=== PATIENT | male | born 1970 | race American Indian/Alaskan Native ===

== ENCOUNTER 2017-02-01 15:52 | Emergency (ER) | payer SELFPAY ==
--- NOTE | 2017-02-01 17:00 | Emergency Department Report ---
ED Alcohol HPI - General Chief Complaint: Alcohol Stated Complaint: ETOH Time Seen by Provider: 02/01/17 16:44 Source: patient, police, EMS Mode of arrival: Stretcher Limitations: Altered Mental Status, Physical Limitation - History of Present Illness Initial Comments: PATIENT BROUGHT BY EMS AFTER PATIENT FOUND BY POLICE INTOXICATED IN THE STREET MD Complaint: alcohol intoxication Chronic Alcohol Use: Yes Associated Symptoms: denies other symptoms. denies: nausea, vomiting - Related Data Allergies Allergy/AdvReac Type Severity Reaction Status Date / Time Unable to Assess Allergy Unverified 02/01/17 16:55 ED Review of Systems ROS: Stated complaint: ETOH Other details as noted in HPI Comment: All other systems reviewed and negative Constitutional: denies: chills, fever ENT: denies: ear pain, throat pain Respiratory: denies: cough, shortness of breath, SOB with exertion, SOB at rest Cardiovascular: denies: chest pain Gastrointestinal: denies: abdominal pain, nausea, vomiting Neurological: denies: headache ED Past Medical Hx - Past Medical History Previous Medical History?: No - Surgical History Past Surgical History?: No - Social History Smoking Status: Heavy Tobacco Smoker Substance Use Type: Marijuana ED Physical Exam - General Limitations: Altered Mental Status, Physical Limitation General appearance: alert, appears intoxicated ED Course Vital Signs 02/01/17 02/01/17 02/01/17 16:06 16:16 17:09 Temperature 98.2 F 98.2 F 98 F Pulse Rate 82 100 H 88 Respiratory 18 18 18 Rate Blood Pressure 151/93 Blood Pressure 131/93 130/86 [Left] O2 Sat by Pulse 100 100 100 Oximetry 02/01/17 02/01/17 19:01 19:02 Temperature 98 F Pulse Rate 82 Respiratory 18 20 Rate Blood Pressure Blood Pressure 118/72 [Left] O2 Sat by Pulse 100 Oximetry - Reevaluation(s) Reevaluation #1: 02/01/17 19:43 patient is awake , alert and oriented. He doesn't want detox. will discharge when his alcohol level come down. ED Medical Decision Making - Lab Data Result diagrams: 02/01/17 19:15 Critical care attestation.: If time is entered above; I have spent that time in minutes in the direct care of this critically ill patient, excluding procedure time. ED Disposition Clinical Impression: Alcohol abuse Disposition: DC-01 TO HOME OR SELFCARE Is pt being admited?: No Does the pt Need Aspirin: No Condition: Stable Referrals: PRIMARY CARE, [Primary Care Provider] - 3-5 Days
[2017-02-01 19:32] LABS: Basophils % (Auto) 0.3 % (0.0-1.8); Hematocrit 38.6 % (35.5-45.6); Hemoglobin 12.1 gm/dl (11.8-15.2); Mean Corpuscular HGB Conc 32 % (32-34); Mean Corpuscular Volume 73 fl (84-94); Platelet Count 200 K/mm3 (140-440); Red Blood Count 5.28 M/mm3 (3.65-5.03); Red Cell Distribution Width 15.8 % (13.2-15.2); White Blood Count 5.5 K/mm3 (4.5-11.0)
[2017-02-01 19:36] LABS: Mean Corpuscular Hemoglobin 23 pg (28-32)
[2017-02-01 19:50] LABS: Alanine Aminotransferase 19 units/L (7-56); Albumin 4.3 g/dL (3.9-5); Albumin/Globulin Ratio 1.4 %; Alkaline Phosphatase 45 units/L (35-129); Anion Gap 21 mmol/L; Blood Urea Nitrogen 24 mg/dL (9-20); Calcium 8.5 mg/dL (8.4-10.2); Carbon Dioxide 22 mmol/L (22-30); Chloride 110.7 mmol/L (98-107); Glucose 77 mg/dL (75-100); Potassium 4.2 mmol/L (3.6-5.0); Sodium 149 mmol/L (137-145); Total Protein 7.3 g/dL (6.3-8.2)
[2017-02-01 21:51] LABS: Urine Drugs of Abuse Note Disclamer
[2017-02-02 06:42] VITALS: BP 127/89
--- NOTE | 2017-02-02 10:21 | Event Note ---
Date: 02/02/17 The patient is interviewed. The patient is alert and oriented 3. He is not homicidal or suicidal, and he walks with a steady gait. He is clinically sober at this time. He will be discharged at this time. He is instructed to exercise caution with alcohol consumption. Return precautions are reviewed. Vital Signs 02/01/17 02/01/17 02/01/17 16:06 16:16 17:09 Temperature 98.2 F 98.2 F 98 F Pulse Rate 82 100 H 88 Respiratory 18 18 18 Rate Blood Pressure 151/93 Blood Pressure 131/93 130/86 [Left] O2 Sat by Pulse 100 100 100 Oximetry 02/01/17 02/01/17 02/01/17 19:01 19:02 21:51 Temperature 98 F 98 F Pulse Rate 82 88 Respiratory 18 20 18 Rate Blood Pressure Blood Pressure 118/72 118/77 [Left] O2 Sat by Pulse 100 98 Oximetry 02/01/17 02/01/17 02/01/17 21:52 23:22 23:24 Temperature 98 F Pulse Rate 78 Respiratory 18 20 20 Rate Blood Pressure Blood Pressure 126/99 [Left] O2 Sat by Pulse 100 Oximetry 02/02/17 02/02/17 02/02/17 03:00 04:00 05:00 Temperature Pulse Rate 82 68 78 Respiratory 18 18 16 Rate Blood Pressure Blood Pressure 148/118 138/108 132/104 [Left] O2 Sat by Pulse 98 100 98 Oximetry 02/02/17 06:00 Temperature Pulse Rate 83 Respiratory 16 Rate Blood Pressure Blood Pressure 127/89 [Left] O2 Sat by Pulse 98 Oximetry Lab Results 02/01/17 02/01/17 02/01/17 Range/Units 17:01 19:15 19:15 WBC 5.5 (4.5-11.0) K/mm3 RBC 5.28 H (3.65-5.03) M/mm3 Hgb 12.1 (11.8-15.2) gm/dl Hct 38.6 (35.5-45.6) % MCV 73 L (84-94) fl MCH 23 L (28-32) pg MCHC 32 (32-34) % RDW 15.8 H (13.2-15.2) % Plt Count 200 (140-440) K/mm3 Lymph % (Auto) 47.1 H (13.4-35.0) % Grady % (Auto) 5.0 (0.0-7.3) % Eos % (Auto) 9.0 H (0.0-4.3) % Baso % (Auto) 0.3 (0.0-1.8) % Lymph # 2.6 (1.2-5.4) K/mm3 Grady # 0.3 (0.0-0.8) K/mm3 Eos # 0.5 H (0.0-0.4) K/mm3 Baso # 0.0 (0.0-0.1) K/mm3 Seg Neutrophils % 38.6 L (40.0-70.0) % Seg Neutrophils # 2.1 (1.8-7.7) K/mm3 Sodium 149 H (137-145) mmol/L Potassium 4.2 (3.6-5.0) mmol/L Chloride 110.7 H (98-107) mmol/L Carbon Dioxide 22 (22-30) mmol/L Anion Gap 21 mmol/L BUN 24 H (9-20) mg/dL Creatinine 1.5 (0.8-1.5) mg/dL Estimated GFR > 60 ml/min BUN/Creatinine Ratio 16.00 % Glucose 77 (75-100) mg/dL Calcium 8.5 (8.4-10.2) mg/dL Total Bilirubin 0.40 (0.1-1.2) mg/dL AST 22 (5-40) units/L ALT 19 (7-56) units/L Alkaline Phosphatase 45 (35-129) units/L Total Protein 7.3 (6.3-8.2) g/dL Albumin 4.3 (3.9-5) g/dL Albumin/Globulin Ratio 1.4 % Urine Opiates Screen Urine Methadone Screen Ur Barbiturates Screen Ur Phencyclidine Scrn Ur Amphetamines Screen U Benzodiazepines Scrn Urine Cocaine Screen U Marijuana (THC) Screen Drugs of Abuse Note Plasma/Serum Alcohol 0.20 H (0-0.07) gm% 02/01/17 02/01/17 02/02/17 Range/Units 19:15 21:35 03:27 WBC (4.5-11.0) K/mm3 RBC (3.65-5.03) M/mm3 Hgb (11.8-15.2) gm/dl Hct (35.5-45.6) % MCV (84-94) fl MCH (28-32) pg MCHC (32-34) % RDW (13.2-15.2) % Plt Count (140-440) K/mm3 Lymph % (Auto) (13.4-35.0) % Grady % (Auto) (0.0-7.3) % Eos % (Auto) (0.0-4.3) % Baso % (Auto) (0.0-1.8) % Lymph # (1.2-5.4) K/mm3 Grady # (0.0-0.8) K/mm3 Eos # (0.0-0.4) K/mm3 Baso # (0.0-0.1) K/mm3 Seg Neutrophils % (40.0-70.0) % Seg Neutrophils # (1.8-7.7) K/mm3 Sodium (137-145) mmol/L Potassium (3.6-5.0) mmol/L Chloride (98-107) mmol/L Carbon Dioxide (22-30) mmol/L Anion Gap mmol/L BUN (9-20) mg/dL Creatinine (0.8-1.5) mg/dL Estimated GFR ml/min BUN/Creatinine Ratio % Glucose (75-100) mg/dL Calcium (8.4-10.2) mg/dL Total Bilirubin (0.1-1.2) mg/dL AST (5-40) units/L ALT (7-56) units/L Alkaline Phosphatase (35-129) units/L Total Protein (6.3-8.2) g/dL Albumin (3.9-5) g/dL Albumin/Globulin Ratio % Urine Opiates Screen Presumptive negative Urine Methadone Screen Presumptive negative Ur Barbiturates Screen Presumptive negative Ur Phencyclidine Scrn Presumptive negative Ur Amphetamines Screen Presumptive negative U Benzodiazepines Scrn Presumptive negative Urine Cocaine Screen Presumptive negative U Marijuana (THC) Screen Presumptive positive Drugs of Abuse Note Disclamer Plasma/Serum Alcohol 0.29 H 0.17 H (0-0.07) gm% //17 Range/Units 07:13 WBC (4.5-11.0) K/mm3 RBC (3.65-5.03) M/mm3 Hgb (11.8-15.2) gm/dl Hct (35.5-45.6) % MCV (84-94) fl MCH (28-32) pg MCHC (32-34) % RDW (13.2-15.2) % Plt Count (140-440) K/mm3 Lymph % (Auto) (13.4-35.0) % Grady % (Auto) (0.0-7.3) % Eos % (Auto) (0.0-4.3) % Baso % (Auto) (0.0-1.8) % Lymph # (1.2-5.4) K/mm3 Grady # (0.0-0.8) K/mm3 Eos # (0.0-0.4) K/mm3 Baso # (0.0-0.1) K/mm3 Seg Neutrophils % (40.0-70.0) % Seg Neutrophils # (1.8-7.7) K/mm3 Sodium (137-145) mmol/L Potassium (3.6-5.0) mmol/L Chloride (98-107) mmol/L Carbon Dioxide (22-30) mmol/L Anion Gap mmol/L BUN (9-20) mg/dL Creatinine (0.8-1.5) mg/dL Estimated GFR ml/min BUN/Creatinine Ratio % Glucose (75-100) mg/dL Calcium (8.4-10.2) mg/dL Total Bilirubin (0.1-1.2) mg/dL AST (5-40) units/L ALT (7-56) units/L Alkaline Phosphatase (35-129) units/L Total Protein (6.3-8.2) g/dL Albumin (3.9-5) g/dL Albumin/Globulin Ratio % Urine Opiates Screen Urine Methadone Screen Ur Barbiturates Screen Ur Phencyclidine Scrn Ur Amphetamines Screen U Benzodiazepines Scrn Urine Cocaine Screen U Marijuana (THC) Screen Drugs of Abuse Note Plasma/Serum Alcohol 0.10 H (0-0.07) gm%
== END 2017-02-02 10:32 | disposition home or self-care (01) ==
LOC: ED 15:52
DX: F10.129 Alcohol abuse with intoxication, unspecified (principal); F17.200 Nicotine dependence, unspecified, uncomplicated; F12.10 Cannabis abuse, uncomplicated
CPT/HCPCS: 36415; 80053; 80307; 85025; 99284; G0480; 80320